=== PATIENT | male | born 1995 | race Native Hawaiian/Other Pacific Islander ===

== ENCOUNTER 2020-12-07 13:22 | Outpatient (CLI) | payer OTHER | END 2020-12-07 21:13 | disposition home or self-care (01) | LOC: INF 13:22 | PROVIDERS: ATTEND Internal Medicine | DX: Z23 Encounter for immunization (principal) | CPT/HCPCS: 96372 ==

== ENCOUNTER 2021-01-03 14:04 | Outpatient (CLI) | payer OTHER | END 2021-01-03 21:28 | disposition home or self-care (01) | LOC: INF 14:04 | PROVIDERS: ATTEND Internal Medicine | DX: Z23 Encounter for immunization (principal) | CPT/HCPCS: 96372 ==